=== PATIENT | female | born 1980 | race Caucasian/White ===

== ENCOUNTER 2020-02-26 12:41 | Inpatient (IN) | payer MEDICAID ==
[~2020-02-26] VITALS: Ht 162.6 cm; Wt 80.4 kg
[2020-02-26 13:37] LABS: BASOPHILS % (AUTO) 0.6 % (0.0-2.0); EOSINOPHILS % (AUTO) 0.9 % (1.0-6.0); HEMATOCRIT 37.1 % (36-46); HEMOGLOBIN 11.6 g/dL (12.0-16.0); LYMPHOCYTES # (AUTO) 1.6 K/uL (1.0-4.8); LYMPHOCYTES % (AUTO) 20.1 % (22.0-44.0); MEAN CORPUSCULAR HEMOGLOBIN 27.6 pg (26.0-34.0); MEAN CORPUSCULAR HGB CONC 31.4 G/dL (31.0-37.0); MEAN CORPUSCULAR VOLUME 88 fL (80-100); MONOCYTES # (AUTO) 0.4 K/uL (0.1-1.0); NEUTROPHILS # (AUTO) 5.8 K/uL (1.8-7.7); NEUTROPHILS % (AUTO) 73.4 % (40.0-70.0); PLATELET COUNT (AUTO) 448 K/uL (150-450); RED BLOOD CELL COUNT(AUTO) 4.22 MIL/uL (4.00-5.20); RED CELL DISTRIBUTION WIDTH 15.8 % (11.5-14.5)
[2020-02-26 13:54] LABS: ANION GAP 11 mmol/L (8-16); CALCIUM, TOTAL 8.9 mg/dL (8.8-10.5); CARBON DIOXIDE 22 mmol/L (22-29); CHLORIDE 102 mmol/L (98-107); CREATININE 0.93 mg/dL (0.60-1.30); GLOMERULAR FILTR. RATE CALC > 60 mL/min (>60); GLUCOSE,RANDOM 92 mg/dL (70-110); SODIUM SERUM 135 mmol/L (136-145); UREA NITROGEN, BLOOD 21 mg/dL (7-18)
[2020-02-26 13:59] LABS: ALANINE AMINOTRANSFERASE 16 U/L (12-78); ALBUMIN 4.4 g/dL (3.4-5.0); ALKALINE PHOSPHATASE 84 U/L (46-116); ASPARTATE AMINOTRANSFERASE 13 U/L (15-37); BILIRUBIN,TOTAL 0.6 mg/dL (0.1-1.0); TOTAL PROTEIN, SERUM 7.7 g/dL (6.4-8.2)
[2020-02-26 14:38] LABS: APPEARANCE,URINE CLOUDY (CLEAR); BILIRUBIN,URINE NEGATIVE (NEGATIVE); GLUCOSE, URINE (UA) NEGATIVE (NEGATIVE); KETONES,URINE 40 mg/dL (NEGATIVE); LEUKOCYTE ESTERASE ,URINE MODERATE (NEGATIVE); NITRATE,URINE POSITIVE (NEGATIVE); OCCULT BLOOD,URINE NEGATIVE (NEGATIVE); PROTEIN,URINE NEGATIVE (NEGATIVE)
[2020-02-26 14:42] LABS: AMPHET/METH SCREEN,URINE POSITIVE (NEGATIVE); BARBITURATE SCREEN, URINE NEGATIVE (NEGATIVE); BENZODIAZEPINES SCREEN,URINE NEGATIVE (NEGATIVE); CANNABINOID SCREEN,URINE NEGATIVE (NEGATIVE); COCAINE SCREEN,URINE NEGATIVE (NEGATIVE); METHADONE SCREEN, URINE NEGATIVE (NEGATIVE); OPIATE SCREEN,URINE NEGATIVE (NEGATIVE)
[2020-02-26 14:43] LABS: PHENCYCLIDINE SCREEN,URINE NEGATIVE (NEGATIVE)
[2020-02-26 14:45] LABS: BACTERIA,URINE Many /HPF (None Seen); RBC,URINE None Seen /HPF (0-2); SQUAMOUS EPITHELIAL CELL,UR Moderate /LPF (None Seen)
[2020-02-26] MEDS ORDERED: CEPHALEXIN MONOHYDRATE 500 MG CAPSULE PO ONE (15:15)
[2020-02-26] MEDS ORDERED: HydrOXYzine PAMOATE 50 MG CAPSULE PO ONE (15:15)
[2020-02-26] MEDS ORDERED: SULFAMETHOX/TRIMETH DS 800-160 MG/TABLET PO ONE (15:15)
[2020-02-26 16:32] LABS: FREE T4 (FREE THYROXINE) 2.45 ng/dL (0.76-1.46)
[2020-02-26 16:53] LABS: THYROID STIMULATING HORMONE < 0.01 uIU/mL (0.36-3.74)
[2020-02-26 20:54] VITALS: BP 98/57
[2020-02-27 07:40] LABS: CHOL/HDL RATIO 2.6 (3.9-5.7); CHOLESTEROL 216 mg/dL (131-200); FREE T4 (FREE THYROXINE) 1.99 ng/dL (0.76-1.46); HDL CHOLESTEROL 82 mg/dL (40-60); LDL CHOL (CALC.) 118 mg/dL (0-130); TRIGLYCERIDES 79 mg/dL (15-150)
[2020-02-27 08:02] LABS: THYROID STIMULATING HORMONE < 0.01 uIU/mL (0.36-3.74)
[2020-02-27] MEDS: LORazepam 2 MG TABLET PO PRN ×2 (08:45→13:23)
[2020-02-27] MEDS: CEPHALEXIN MONOHYDRATE 250 MG CAPSULE PO SCH ×3 (08:46→16:21)
[2020-02-27 08:48] VITALS: BP 107/71
[2020-02-27] MEDS: PHENAZOPYRIDINE HCL 100 MG TABLET PO SCH ×2 (10:03→16:21)
[2020-02-27] MEDS: BACITRACIN 28.4 GM OINTMENT TP SCH ×2 (11:13→16:21)
[2020-02-27] MEDS ORDERED: ALBUTEROL SULFATE HFA 90 MCG/PUFF 8 GM INHALER IH PRN (13:00)
[2020-02-27] MEDS ORDERED: LOPERAMIDE HCL 2 MG CAPSULE PO PRN (13:00)
[2020-02-27] MEDS ORDERED: MAG HYDROX/AL HYDROX/SIMETH ES 30 ML SUSPENSION UDCUP PO PRN (13:00)
[2020-02-27] MEDS ORDERED: ONDANSETRON HCL 4 MG TABLET PO PRN (13:00)
[2020-02-27] MEDS ORDERED: GuaiFENesin/D-METHORPHAN [SUGAR-FREE] 200-20MG/10 ML SYRUP UDCUP PO PRN (13:00)
[2020-02-27] MEDS ORDERED: NICOTINE 14 MG/24 HOUR PATCH TD PRN (13:00)
[2020-02-27] MEDS ORDERED: ACETAMINOPHEN 325 MG TABLET PO PRN (13:00)
[2020-02-27] MEDS ORDERED: CloNIDine HCL 0.1 MG TABLET PO PRN (13:00)
[2020-02-27] MEDS ORDERED: PETROLATUM,WHITE 28 GM JELLY TP PRN (13:00)
[2020-02-27] MEDS ORDERED: MAGNESIUM HYDROXIDE SUSPENSION 30 ML UDCUP PO PRN (13:00)
[2020-02-27] MEDS ORDERED: DOCUSATE SODIUM 100 MG CAPSULE PO PRN (13:00)
[2020-02-27 16:10] VITALS: BP 101/64
[2020-02-28] MEDS: BACITRACIN 28.4 GM OINTMENT TP SCH ×2 (08:32→16:03)
[2020-02-28] MEDS: METHIMAZOLE 5 MG TABLET PO SCH (08:32)
[2020-02-28] MEDS: SERTRALINE HCL 50 MG TABLET PO SCH (08:32)
[2020-02-28] MEDS: PHENAZOPYRIDINE HCL 100 MG TABLET PO SCH ×2 (08:32→16:03)
[2020-02-28] MEDS: CEPHALEXIN MONOHYDRATE 250 MG CAPSULE PO SCH ×3 (08:32→16:03)
[2020-02-28] MEDS: LORazepam 2 MG TABLET PO PRN ×2 (08:33→18:57)
[2020-02-28 08:34] VITALS: BP 120/73
[2020-02-28] MEDS: IBUPROFEN 400 MG TABLET PO PRN (08:34)
[2020-02-28 18:08] VITALS: BP 118/73
[2020-02-28 18:57] VITALS: BP 114/82
[2020-02-29 08:00] VITALS: BP 116/70
[2020-02-29] MEDS: SERTRALINE HCL 50 MG TABLET PO SCH (08:03)
[2020-02-29] MEDS: PHENAZOPYRIDINE HCL 100 MG TABLET PO SCH ×2 (08:03→16:09)
[2020-02-29] MEDS: CEPHALEXIN MONOHYDRATE 250 MG CAPSULE PO SCH ×3 (08:03→16:09)
[2020-02-29] MEDS: BACITRACIN 28.4 GM OINTMENT TP SCH ×2 (08:03→16:09)
[2020-02-29] MEDS: METHIMAZOLE 5 MG TABLET PO SCH (08:03)
[2020-02-29] MEDS: LORazepam 2 MG TABLET PO PRN ×2 (10:58→17:52)
[2020-02-29 17:52] VITALS: BP 121/77
[2020-03-01 08:30] VITALS: BP 130/90
[2020-03-01] MEDS: METHIMAZOLE 5 MG TABLET PO SCH (10:13)
[2020-03-01] MEDS: SERTRALINE HCL 50 MG TABLET PO SCH (10:14)
[2020-03-01] MEDS: CEPHALEXIN MONOHYDRATE 250 MG CAPSULE PO SCH ×3 (10:14→17:12)
[2020-03-01] MEDS: BACITRACIN 28.4 GM OINTMENT TP SCH ×2 (10:14→17:12)
[2020-03-01] MEDS: LORazepam 2 MG TABLET PO PRN ×2 (10:16→18:08)
[2020-03-01] MEDS: IBUPROFEN 400 MG TABLET PO PRN (10:19)
[2020-03-01] MEDS: HALOPERIDOL 5 MG TABLET PO PRN ×2 (11:01→18:08)
[2020-03-01 18:20] VITALS: BP 107/71
[2020-03-02] MEDS: BACITRACIN 28.4 GM OINTMENT TP SCH ×2 (08:24→16:08)
[2020-03-02] MEDS: SERTRALINE HCL 50 MG TABLET PO SCH (08:24)
[2020-03-02] MEDS: METHIMAZOLE 5 MG TABLET PO SCH (08:24)
[2020-03-02] MEDS: CEPHALEXIN MONOHYDRATE 250 MG CAPSULE PO SCH ×3 (08:24→16:08)
[2020-03-02] MEDS: HALOPERIDOL 5 MG TABLET PO PRN ×2 (08:32→16:31)
[2020-03-02] MEDS: LORazepam 2 MG TABLET PO PRN ×2 (08:32→16:06)
[2020-03-02 08:56] VITALS: BP 126/87
[2020-03-02 19:22] VITALS: BP 117/67
[2020-03-03] MEDS: METHIMAZOLE 5 MG TABLET PO SCH (09:01)
[2020-03-03] MEDS: SERTRALINE HCL 50 MG TABLET PO SCH (09:01)
[2020-03-03] MEDS: BACITRACIN 28.4 GM OINTMENT TP SCH ×2 (09:01→16:25)
[2020-03-03] MEDS: CEPHALEXIN MONOHYDRATE 250 MG CAPSULE PO SCH ×3 (09:01→16:25)
[2020-03-03] MEDS: HALOPERIDOL 5 MG TABLET PO PRN ×2 (09:02→14:40)
[2020-03-03] MEDS: LORazepam 2 MG TABLET PO PRN ×2 (09:02→14:40)
[2020-03-03 09:05] VITALS: BP 106/51
[2020-03-03] MEDS: ZOLPIDEM TARTRATE 10 MG TABLET PO PRN (19:02)
[2020-03-03 19:26] VITALS: BP 132/60
[2020-03-04] MEDS: METHIMAZOLE 5 MG TABLET PO SCH (08:09)
[2020-03-04] MEDS: CEPHALEXIN MONOHYDRATE 250 MG CAPSULE PO SCH ×3 (08:09→16:48)
[2020-03-04] MEDS: MULTIVITAMINS WITH MINERALS, THERAPEUTIC TABLET PO SCH (08:09)
[2020-03-04] MEDS: SERTRALINE HCL 100 MG TABLET PO SCH (08:09)
[2020-03-04] MEDS: BACITRACIN 28.4 GM OINTMENT TP SCH ×2 (08:10→16:50)
[2020-03-04 08:30] VITALS: BP 101/65
[2020-03-04 10:30] VITALS: BP 123/60
[2020-03-04] MEDS: HALOPERIDOL 5 MG TABLET PO PRN ×2 (10:30→16:49)
[2020-03-04] MEDS: LORazepam 2 MG TABLET PO PRN ×2 (10:30→16:49)
[2020-03-04 16:49] VITALS: BP 131/80
[2020-03-05] MEDS: MULTIVITAMINS WITH MINERALS, THERAPEUTIC TABLET PO SCH (08:10)
[2020-03-05] MEDS: SERTRALINE HCL 100 MG TABLET PO SCH (08:10)
[2020-03-05] MEDS: CEPHALEXIN MONOHYDRATE 250 MG CAPSULE PO SCH (08:10)
[2020-03-05] MEDS: BACITRACIN 28.4 GM OINTMENT TP SCH ×2 (08:11→16:30)
[2020-03-05] MEDS: METHIMAZOLE 5 MG TABLET PO SCH (08:11)
[2020-03-05 08:42] VITALS: BP 104/67
[2020-03-05 10:12] VITALS: BP 107/65
[2020-03-05] MEDS: HALOPERIDOL 5 MG TABLET PO PRN ×2 (10:14→16:28)
[2020-03-05] MEDS: LORazepam 2 MG TABLET PO PRN ×2 (10:14→16:28)
[2020-03-05 16:28] VITALS: BP 118/72
[2020-03-05 16:52] VITALS: BP 115/80
[2020-03-05] MEDS: ZOLPIDEM TARTRATE 10 MG TABLET PO PRN (20:35)
[2020-03-06 08:40] VITALS: BP 120/67
[2020-03-06] MEDS: SERTRALINE HCL 100 MG TABLET PO SCH (09:26)
[2020-03-06] MEDS: MULTIVITAMINS WITH MINERALS, THERAPEUTIC TABLET PO SCH (09:27)
[2020-03-06] MEDS: BACITRACIN 28.4 GM OINTMENT TP SCH ×2 (09:27→16:06)
[2020-03-06] MEDS: METHIMAZOLE 5 MG TABLET PO SCH (09:27)
[2020-03-06] MEDS: LORazepam 2 MG TABLET PO PRN ×2 (10:23→15:50)
[2020-03-06] MEDS: HALOPERIDOL 5 MG TABLET PO PRN ×2 (10:28→15:50)
[2020-03-06] MEDS ORDERED: SERT100T12 PO ×2 (16:39→18:38)
[2020-03-06 16:45] VITALS: BP 102/71
[2020-03-06] MEDS ORDERED: METH-386 PO ×2 (18:32→18:37)
[2020-03-06] MEDS ORDERED: MULT-1239 PO (18:43)
== END 2020-03-06 23:35 | disposition home or self-care (01) | DRG 885 ==
LOC: EMS 12:42 → 3EI 19:01
DX: F33.2 Major depressive disorder, recurrent severe without psychotic features (principal); R45.851 Suicidal ideations; N12 Tubulo-interstitial nephritis, not specified as acute or chronic; E87.6 Hypokalemia; F10.10 Alcohol abuse, uncomplicated; Y90.9 Presence of alcohol in blood, level not specified; F12.90 Cannabis use, unspecified, uncomplicated; F15.10 Other stimulant abuse, uncomplicated; I10 Essential (primary) hypertension; M79.7 Fibromyalgia; E03.9 Hypothyroidism, unspecified; E05.90 Thyrotoxicosis, unspecified without thyrotoxic crisis or storm; E78.5 Hyperlipidemia, unspecified; Z79.899 Other long term (current) drug therapy; Z87.891 Personal history of nicotine dependence; Z91.5 Personal history of self-harm
CPT/HCPCS: 84439; 84443; 87086; G0480

== ENCOUNTER 2022-05-15 17:34 | Inpatient (IN) | payer MEDICAID ==
[~2022-05-15] VITALS: Ht 162.6 cm; Wt 105.0 kg
[~2022-05-15 17:34] MED LIST: METH-386 PO; MULT-1239 PO; SERT-162 PO; SERT-440 PO
[2022-05-15] MEDS ORDERED: ZOLPIDEM TARTRATE 10 MG TABLET PO PRN (18:15)
[2022-05-15] MEDS ORDERED: HALOPERIDOL 5 MG TABLET PO PRN (18:15)
[2022-05-15 18:21] LABS: GLUCOMETER DEV NAME(LOC) POC.BV
[2022-05-15] MEDS: LORazepam 2 MG TABLET PO PRN (20:00)
[2022-05-15 20:02] VITALS: BP 146/84
[2022-05-16 06:47] VITALS: BP 131/70
[2022-05-16 08:16] LABS: BASOPHILS % (AUTO) 0.2 % (0.0-2.0); EOSINOPHILS % (AUTO) 0 % (1.0-6.0); HEMATOCRIT 38.9 % (36-46); HEMOGLOBIN 12.7 g/dL (12.0-16.0); LYMPHOCYTES # (AUTO) 1.8 K/uL (1.0-4.8); LYMPHOCYTES % (AUTO) 17.1 % (22.0-44.0); MEAN CORPUSCULAR HEMOGLOBIN 29.7 pg (26.0-34.0); MEAN CORPUSCULAR HGB CONC 32.7 G/dL (31.0-37.0); MEAN CORPUSCULAR VOLUME 91 fL (80-100); MONOCYTES # (AUTO) 0.6 K/uL (0.1-1.0); MONOCYTES % (AUTO) 5.5 % (2.0-9.0); NEUTROPHILS # (AUTO) 8.2 K/uL (1.8-7.7); NEUTROPHILS % (AUTO) 77.2 % (40.0-70.0); PLATELET COUNT (AUTO) 334 K/uL (150-450); RED BLOOD CELL COUNT(AUTO) 4.28 MIL/uL (4.00-5.20)
[2022-05-16 08:25] LABS: HEMOGLOBIN A1C 5.6 % (3.8-5.6)
[2022-05-16] MEDS: LORazepam 2 MG TABLET PO PRN (08:38)
[2022-05-16] MEDS: AMOXICILLIN TRIHYDRATE 500 MG CAPSULE PO SCH ×3 (08:38→17:00)
[2022-05-16 08:39] VITALS: BP 119/77
[2022-05-16 08:52] LABS: ALANINE AMINOTRANSFERASE 24 U/L (12-78); ALBUMIN 3.8 g/dL (3.4-5.0); ALKALINE PHOSPHATASE 62 U/L (46-116); ANION GAP 13 mmol/L (8-16); ASPARTATE AMINOTRANSFERASE 10 U/L (15-37); BILIRUBIN,TOTAL 0.3 mg/dL (0.1-1.0); CALCIUM, TOTAL 9.1 mg/dL (8.8-10.5); CARBON DIOXIDE 21 mmol/L (22-29); CHLORIDE 107 mmol/L (98-107); CHOL/HDL RATIO 2.2 (3.9-5.7); CHOLESTEROL 234 mg/dL (131-200); CREATININE 0.85 mg/dL (0.60-1.30); FREE T4 (FREE THYROXINE) 0.83 ng/dL (0.76-1.46); GLUCOSE,RANDOM 89 mg/dL (70-110); HCG,QUANTITATIVE < 1 mIU/mL (0-6); HDL CHOLESTEROL 108 mg/dL (40-60); LDL CHOL (CALC.) 108 mg/dL (0-130); POTASSIUM 4.3 mmol/L (3.5-5.1); SODIUM SERUM 141 mmol/L (136-145); THYROID STIMULATING HORMONE 1.31 uIU/mL (0.36-3.74); TOTAL PROTEIN, SERUM 7.4 g/dL (6.4-8.2); TRIGLYCERIDES 91 mg/dL (15-150); UREA NITROGEN, BLOOD 16 mg/dL (7-18)
[2022-05-16] MEDS ORDERED: AMOXICILLIN TRIHYDRATE 500 MG CAPSULE PO SCH (09:00)
[2022-05-16 09:26] LABS: GLOMERULAR FILTR. RATE CALC > 60 mL/min (>60)
[2022-05-16] MEDS ORDERED: ALBUTEROL SULFATE HFA 90 MCG/PUFF 8 GM INHALER IH PRN (10:30)
[2022-05-16] MEDS ORDERED: ONDANSETRON HCL 4 MG TABLET PO PRN (10:30)
[2022-05-16] MEDS ORDERED: MAGNESIUM HYDROXIDE SUSPENSION 30 ML UDCUP PO PRN (10:30)
[2022-05-16] MEDS ORDERED: OMEPRAZOLE 20 MG CAPSULE PO PRN (10:30)
[2022-05-16] MEDS ORDERED: CloNIDine HCL 0.1 MG TABLET PO PRN (10:30)
[2022-05-16] MEDS ORDERED: ACETAMINOPHEN 325 MG TABLET PO PRN (10:30)
[2022-05-16] MEDS ORDERED: BENZOCAINE/MENTHOL LOZENGE PO PRN (10:30)
[2022-05-16] MEDS ORDERED: BACITRACIN 28 GM OINTMENT TP PRN (10:30)
[2022-05-16] MEDS ORDERED: DOCUSATE SODIUM 100 MG CAPSULE PO PRN (10:30)
[2022-05-16] MEDS ORDERED: MAG HYDROX/AL HYDROX/SIMETH ES 30 ML SUSPENSION UDCUP PO PRN (10:30)
[2022-05-16] MEDS ORDERED: PETROLATUM,WHITE 28 GM JELLY TP PRN (10:30)
[2022-05-16] MEDS ORDERED: IBUPROFEN 600 MG TABLET PO PRN (10:30)
[2022-05-16] MEDS ORDERED: LOPERAMIDE HCL 2 MG CAPSULE PO PRN (10:30)
[2022-05-16] MEDS ORDERED: AMOX500C2 PO (14:09)
[2022-05-16 16:49] VITALS: BP 100/61
[2022-05-17] MEDS ORDERED: METHIMAZOLE 5 MG TABLET PO SCH (09:00)
== END 2022-05-16 17:00 | disposition home or self-care (01) | DRG 861 ==
LOC: B3A 18:23
PROVIDERS: ADMIT Psychiatry & Neurology Psychiatry; ATTEND Psychiatry & Neurology Psychiatry
DX: R53.1 Weakness (principal); R45.851 Suicidal ideations; J31.0 Chronic rhinitis; E66.9 Obesity, unspecified; F12.90 Cannabis use, unspecified, uncomplicated; Z20.822 Contact with and (suspected) exposure to COVID-19; K59.00 Constipation, unspecified; F41.9 Anxiety disorder, unspecified; M79.7 Fibromyalgia; Z71.6 Tobacco abuse counseling; Z72.0 Tobacco use; Z68.39 Body mass index [BMI] 39.0-39.9, adult; Z56.0 Unemployment, unspecified
CPT/HCPCS: 80053; 80061; 83036; 84439; 84443; 84702; 85025